=== PATIENT | male | born 1995 | race Caucasian/White ===

== ENCOUNTER 2023-02-11 06:38 | Emergency (ER) | payer BC, SELFPAY ==
[2023-02-11 06:43] VITALS: BP 125/81; PULSE 84; RESP 18; TEMP 37.1; O2SAT 98; BMI 21.7
[2023-02-11] MEDS: ondansetron 2 mg/ML SDV 2 mL 4 MG IVP (06:49)
[2023-02-11] MEDS: sodium chloride 0.9% 1,000 ML 999 ML IV ×2 (06:50→08:15)
--- NOTE | 2023-02-11 06:53 | W.ED.NAVMDI ---
HPI - Nausea/Vomiting/Diarrhea General: Chief complaint: Nausea/Vomiting/Diarrhea Stated complaint: vomiting/diarrhea Time Seen by Provider: 02/11/23 06:40 Source: patient Mode of arrival: ambulatory History of Present Illness: 28-year-old male presents emergency room with complaint of nausea vomiting that began overnight. He states his has similar symptoms. He denies dysuria urgency frequency hematuria denies hematochezia melena hematemesis or coffee-ground emesis. He has not had a fever at all. Relates the abdominal pain is diffuse no focal area. He denies having had this before. He is not really tried anything for it other than drinking clear liquids overnight. No previous abdominal surgeries. His has similar symptoms in the same timeframe. MD elicited complaint: nausea and vomiting Description of vomiting: watery and bilious Associated nausea: Yes Location of pain: Diffuse Pain consistency: constant Severity: moderate Quality: cramping Exacerbating factors: eating Relieving factors: none Associated symtoms: Reports anorexia, nausea and other; Denies altered mental status, anxiety, bloating, change in vision, chest pain, cough, diaphoresis, decreased urine output, dizziness, dysuria, epistaxis, fatigue, fecal incontinence, fevers/chills, headache(s), malaise, myalgias, numbness, palpitations, rash, short of breath, syncope, tenesmus, tinnitus or weakness Review of Systems Const: Denies: fever(s), chills, fatigue, malaise or diaphoresis Eyes: Denies: change in vision ENMT: Denies: tinnitus or epistaxis Card: Denies: chest pain, palpitations or syncope Resp: Denies: dyspnea GI: Reports: abdominal pain, nausea and vomiting; Denies: hematemesis, coffee ground emesis, bloating, fecal incontinence, hematochezia or melena : Denies: flank pain, dysuria, urinary frequency or urinary urgency Musc: Denies: neck pain or back pain Skin/Breast: Denies: rash Neuro: Denies: headache(s) or dizziness Psych: Denies: anxiety PFS ED PFSH: Medical History (Updated 02/11/23 @ 08:24 by Juan Lara DO) Tinea corporis URI with cough and congestion Physical Exam Const: EXAM LIMITATIONS: no altered mental status GENERAL APPEARANCE: cooperative and comfortable ORIENTATION/CONSCIOUSNESS: Yes awake, Yes oriented to person, Yes oriented to place and Yes oriented to time HENMT: COMMON NORMALS: normocephalic, atraumatic and hearing grossly normal bilaterally HEAD & SCALP: normocephalic and atraumatic Resp: COMMON NORMALS: normal respiratory effort, No retractions, No use of accessory muscles and clear to auscultation bilaterally AUSCULTATION: clear to auscultation bilaterally Cardio: COMMON NORMALS: regular rate, regular rhythm and No murmurs present (Cardio) RATE: regular rate RHYTHM: regular rhythm GI: COMMON NORMALS: No hepatosplenomegaly present AUSCULTATION: Yes normoactive bowel sounds PALPATION: Yes Tenderness to palpation present (GI) (Diffuse nonspecific, no peritoneal signs), No Guarding due to palpation present (GI) and Yes No hepatosplenomegaly present Extremity: COMMON NORMALS: normal to inspection, capillary refill normal, no clubbing, cyanosis or edema, no calf tenderness and no pedal edema Neuro: SENSORIUM/ORIENTATION: Yes oriented to person, Yes oriented to place and Yes oriented to time Skin: COMMON NORMALS: no rashes or lesions noted GENERAL SKIN EXAM: no rashes or lesions noted Course Vital Signs: Vital signs: Vital Signs Temperature 98.7 F 02/11/23 06:43 Pulse Rate 84 02/11/23 06:43 Respiratory Rate 18 02/11/23 06:43 Blood Pressure 125/81 02/11/23 06:43 Pulse Oximetry 98 02/11/23 06:43 Oxygen Delivery Me thod Room Air 02/11/23 06:43 MDM - Nausea/Vomiting/Diarrhea Medical Decision Making Mild leukocytosis slight anion gap patient given IV fluids she is feeling better. His is here with similar symptoms. Repeat abdominal exam benign. Discharge home clear liquid diet antiemetics as needed advance diet as tolerated after 24 to 48 hours return if is worsening or change problems. Medical Records I reviewed the patient's medical records. Lab Data I reviewed the patient's lab results. 02/11/23 06:53 02/11/23 06:53 Laboratory Results WBC 16.08 10^3/uL (3.29-11.43) H 02/11/23 06:53 RBC 6.27 10^6/uL (3.85-5.65) H 02/11/23 06:53 Hgb 19.20 g/dL (11.27-16.99) H 02/11/23 06:53 Hct 53.3 % (37-53) H 02/11/23 06:53 MCV 85.0 fl (82-101) 02/11/23 06:53 MCH 30.6 pg (27-33) 02/11/23 06:53 MCHC 36.0 g/dL (30-55) 02/11/23 06:53 RDW 12.0 % (12.1-15.1) L 02/11/23 06:53 Plt Count 290 10^3/cmm (157-399) 02/11/23 06:53 MPV 10.1 fL (7.4-10.4) 02/11/23 06:53 Neut % (Auto) 90.4 % 02/11/23 06:53 Lymph % (Auto) 3.7 % 02/11/23 06:53 [place] % (Auto) 5.1 % 02/11/23 06:53 Eos % (Auto) 0.2 % 02/11/23 06:53 Baso % (Auto) 0.4 % 02/11/23 06:53 Neut # (Auto) 14.53 10^3/uL (1.8-7.7) H 02/11/23 06:53 Lymph # (Auto) 0.6 10^3/uL (0.8-4.8) L 02/11/23 06:53 [place] # (Auto) 0.8 10^3/uL (0.2-0.9) 02/11/23 06:53 Eos # (Auto) 0.0 10^3/uL (0.0-0.8) 02/11/23 06:53 Baso # (Auto) 0.1 10^3/uL (0.0-0.1) 02/11/23 06:53 Nucleated RBC % (auto) 0 % 02/11/23 06:53 Nucleated RBCs # 0.0 /100WBC 02/11/23 06:53 Sodium 140 mmol/L (136-145) 02/11/23 06:53 Potassium 4.0 mmol/L (3.5-5.1) 02/11/23 06:53 Chloride 97 mmol/L (98-107) L 02/11/23 06:53 Carbon Dioxide 26 mmol/L (22-29) 02/11/23 06:53 Anion Gap 21.0 (5-19) H 02/11/23 06:53 BUN 21 mg/dL (6-20) H 02/11/23 06:53 Creatinine 0.9 mg/dL (0.7-1.2) 02/11/23 06:53 GFR Calculation 99.8 mL/min (90-130) 02/11/23 06:53 Glucose 147 mg/dL (65-115) H 02/11/23 06:53 Calculated Osmolality 296 mOsm/kg (285-295) H 02/11/23 06:53 Calcium 10.7 mg/dL (8.5-10.5) H 02/11/23 06:53 Total Bilirubin 5.5 mg/dL (0.15-1.2) H 02/11/23 06:53 AST 26 U/L (0-40) 02/11/23 06:53 ALT 32 U/L (0-41) 02/11/23 06:53 Alkaline Phosphatase 127 U/L (40-130) 02/11/23 06:53 Total Protein 9.2 g/dL (6.6-8.7) H 02/11/23 06:53 Albumin 5.6 g/dL (3.5-5.2) H 02/11/23 06:53 Globulin 3.6 g/dL (1.3-4.6) 02/11/23 06:53 Urine Color Dark yellow (Yellow) 02/11/23 07:48 Urine Appearance Clear (CLEAR) 02/11/23 07:48 Urine pH 5 (5-7) 02/11/23 07:48 Ur Specific [place] 1.020 (1.005-1.030) 02/11/23 07:48 Urine Protein Trace (Negative) 02/11/23 07:48 Urine Glucose (UA) Norm (Normal) 02/11/23 07:48 Urine Ketones 1+ (Negative) H 02/11/23 07:48 Urine Blood Neg (Negative) 02/11/23 07:48 Urine Nitrate Negative (Negative) 02/11/23 07:48 Urine Bilirubin 1+ (Negative) H 02/11/23 07:48 Urine Urobilinogen Norm mg/dL (Negative) 02/11/23 07:48 Ur Leukocyte Esterase Negative (Negative) 02/11/23 07:48 Urine RBC 0-4 /hpf (0-2) H 02/11/23 07:48 Urine WBC 0-4 /hpf (0-5) H 02/11/23 07:48 Ur Squamous Epith Cells 0-4 /hpf (0-5) H 02/11/23 07:48 Amorphous Sediment Not Reportable 02/11/23 07:48 Urine Bacteria Trace /hpf (NONE) 02/11/23 07:48 Urine Mucus 3+ /hpf 02/11/23 07:48 No radiology studies performed this visit Discharge Plan Discharge Patient Disposition: Home Clinical Impression: Gastroenteritis Condition: Stable Prescriptions: New promethazine 25 mg tablet 25 mg PO Q6H PRN (Reason: nausea and vomiting) Qty: 20 0RF No Action butenafine [Lotrimin Ultra] 1 % cream 1 applic topical BID Qty: 30 0RF benzonatate 200 mg capsule 200 mg PO TID PRN (Reason: cough) Qty: 30 0RF Discharge Orders: Discharge ED (Routine); Ordered 02/11/23 Ordered By: Juan Lara Discharge Diet: Clear Liquid Discharge Activity: Increase activity as tolerated Patient Instructions: Gastroenteritis (ED), Opioid Safety, Pain Management Coding Level of Care Code ED Clinic Assistant for Dina Morrissey
[2023-02-11 06:59] LABS: Basophils # 0.1 10^3/uL (0.0-0.1); Basophils % 0.4 %; Eosinophils % 0.2 %; Hematocrit 53.3 % (37-53); Lymphocytes # 0.6 10^3/uL (0.8-4.8); Lymphocytes % 3.7 %; Mean Corpuscular Hemoglobin 30.6 pg (27-33); Mean Platelet Volume 10.1 fL (7.4-10.4); Monocytes # 0.8 10^3/uL (0.2-0.9); Monocytes % 5.1 %; Neutrophils # 14.53 10^3/uL (1.8-7.7); Neutrophils % 90.4 %; Nucleated Red Blood Cells % 0 %; Platelet Count 290 10^3/cmm (157-399); Red Blood Count 6.27 10^6/uL (3.85-5.65); White Blood Count 16.08 10^3/uL (3.29-11.43)
[2023-02-11 07:19] LABS: Alanine Aminotransferase 32 U/L (0-41); Albumin Level 5.6 g/dL (3.5-5.2); Alkaline Phosphatase 127 U/L (40-130); Aspartate Amino Transferase 26 U/L (0-40); Blood Urea Nitrogen 21 mg/dL (6-20); Calcium 10.7 mg/dL (8.5-10.5); Carbon Dioxide 26 mmol/L (22-29); Chloride 97 mmol/L (98-107); Globulin 3.6 g/dL (1.3-4.6); Glomerular Filtration Rate 99.8 mL/min (90-130); Glucose 147 mg/dL (65-115); Osmolality Calculated 296 mOsm/kg (285-295); Sodium 140 mmol/L (136-145); Total Bilirubin 5.5 mg/dL (0.15-1.2); Total Protein 9.2 g/dL (6.6-8.7)
[2023-02-11 08:11] LABS: Bilirubin Urine 1+ (Negative); Blood Urine Neg (Negative); Glucose Urine UA Norm (Normal); Ketones Urine 1+ (Negative); Leukocyte Esterase Urine Negative (Negative); Nitrate Urine Negative (Negative); Protein Urine Trace (Negative); Urine Appearance Clear (CLEAR); Urine Color Dark Yellow (Yellow); Urobilinogen Urine Norm (Negative); pH Urine 5 (5-7)
[2023-02-11 08:12] LABS: Add Urine Microscopic? YES
[2023-02-11 08:17] LABS: Bacteria Urine TRACE /hpf; RBC Urine 0-4 /hpf (0-2); Squamous Epithelial Cell Urine 0-4 /hpf (0-5); WBC Urine 0-4 /hpf (0-5)
[2023-02-11 08:18] LABS: Add Urine Culture? No; Mucus Urine 3+ /hpf
== END 2023-02-11 08:45 | disposition home or self-care (01) ==
PROVIDERS: Emergency Provider Family Medicine
DX: K52.9 Noninfective gastroenteritis and colitis, unspecified (principal)
CPT/HCPCS: 80053; 81001; 85025; 96361; 96374; 99284; J2405; J7030

== ENCOUNTER 2024-11-02 04:07 | Day surgery (SDC) | payer OTHER, SELFPAY ==
[2024-11-02] VITALS (18 sets, daily range): BP systolic 116–150; BP diastolic 69–91; PULSE 61–83; RESP 14–18; TEMP 36.6–36.9; O2SAT 96–100; BMI 20.6
--- NOTE | 2024-11-02 04:16 | XRR_ITS ---
PROCEDURE INFORMATION: Exam: XR Right Hand Exam date and time: 11/02/2024 4:20 AM Age: 29 years old Clinical indication: Injury or trauma; Other: Laceration; Hand; Right; Additional info: Index finger laceration and injry TECHNIQUE: Imaging protocol: Radiologic exam of the right hand. Views: 3 or more views. COMPARISON: No relevant prior studies available. FINDINGS: Bones/joints: There may be a subtle fracture involving the palmar and medial aspect of the proximal middle phalanx. No additional fractures are appreciated. There is no evidence of a dislocation. Bony mineralization is normal. Soft tissues: There is soft tissue injury with soft tissue swelling involving the 2nd digit. No acute soft tissue abnormalities are otherwise noted. No radiopaque soft tissue foreign body is identified. XR/XR hand RT min 3V* [id number] IMPRESSION: 1. Soft tissue swelling with soft tissue injury involving the 2nd digit. 2. Possible subtle fracture involving the proximal middle phalanx of the 2nd digit.
--- NOTE | 2024-11-02 04:24 | W.ED.EXTPRO ---
Documented by User: Dianelys Mcclellan MD 11/02/24 05:31 HPI - Extremity Problem General: Chief complaint: Extremity Injury, Upper Stated complaint: Rt Smashed Time Seen by Provider: 11/02/24 04:16 History of Present Illness: 29-year-old man presents emergency room with a right hand injury. He was at work and a motor dropped on his hand. He has a laceration on the palmar side of his right index finger. This is a large flap. He is neurovascularly intact. No other injuries. Related Data Home Medications ?Medication ?Instructions ?Recorded ?Confirmed No Known Home Medications 10/04/24 10/04/24 Allergies Allergy/AdvReac Type Severity Reaction Status Date / Time No Known Allergies Allergy Verified 10/04/24 13:16 Review of Systems Narrative: Constitutional symptoms: Negative except as documented in HPI. Skin symptoms: Negative except as documented in HPI. Eye symptoms: Negative except as documented in HPI. ENMT symptoms: Negative except as documented in HPI. Respiratory symptoms: Negative except as documented in HPI. Cardiovascular symptoms: Negative except as documented in HPI. Gastrointestinal symptoms: Negative except as documented in HPI. Genitourinary symptoms: Negative except as documented in HPI. Musculoskeletal symptoms: Negative except as documented in HPI. Neurologic symptoms: Negative except as documented in HPI. Psychiatric symptoms: Negative except as documented in HPI. Endocrine symptoms: Negative except as documented in HPI. [facility] ED PFSH: Surgical History (Updated 10/04/24 @ 13:16 by Shelley Bob MD) No history of previous surgery Family History (Updated 10/04/24 @ 13:17 by Shelley Bob MD) Mother Lung cancer Atrial fibrillation Sleep apnea Social History (Updated 10/04/24 @ 13:20 by Shelley Bob MD) Smoking and tobacco/nicotine status: current every day tobacco/nicotine user (vapes) e-cigarettes E-Cigarette Details: vaporizer device and with nicotine Alcohol intake: former Substance/Drug Use: current Substance/Drug use frequency: few times a week Household members: significant other Marital status: Single Number of children: 1 Current occupational status: employed Current occupation: [employer] Special db needs: No Agree to transfusion: Yes Physical Exam Narrative: EXAM NARRATIVE: General: Alert, no acute distress. Skin: warm and dry, large triangular-shaped flap on the mid right palmar index finger. Head: Normocephalic Neck: Trachea midline Eye: Extraocular movements are intact. Ears, nose, mouth and throat: Oral mucosa moist Respiratory: Respirations are non-labored Musculoskeletal: Normal ROM Gastrointestinal: Abdomen does not appear distended Neurological: Alert and oriented, No focal neurological deficit observed. Psychiatric: Cooperative, appropriate mood & affect. Course Vital Signs: Vital signs: Vital Signs Temperature 97.8 F 11/02/24 04:10 Pulse Rate 83 11/02/24 06:52 Respiratory Rate 18 11/02/24 06:08 Blood Pressure 135/90 11/02/24 06:52 Pulse Oximetry 100 11/02/24 06:52 Oxygen Delivery Me thod Room Air 11/02/24 04:10 MDM - Extremity (Nontraumatic) Medical Decision Making Consultation: I spoke with Dr. Morris who is on-call for orthopedics. Given large amount of exposure of tendon and exposure to dirt and grease he is going to come evaluate the patient and consider taking him to the OR for washout Tetanus, IV Ancef, IV morphine. X-ray of the right hand: In 1 view there might be a small cortical irregularity but I think this actually shadow from the laceration. Films were interpreted by myself the emergency room provider and pending final radiology review. Patient care transitioned Dr. Lara at shift change Discharge Plan Discharge Patient Disposition: Placed in Observation Clinical Impression: Laceration of finger Qualifiers: Encounter type: initial encounter Finger: index finger Damage to nail status: without damage Foreign body presence: without foreign body Laterality: right Qualified Code(s): S61.210A - Laceration without foreign body of right index finger without damage to nail, initial encounter Sign Out Sign Out Data: Patient Sign Out occurred on 11/02/24 at 05:53. Patient's care was discussed, and care was transferred from Dianelys Mcclellan MD to Juan Lara DO. Coding Level of Care Code ED Plate Put In Worker for Chg Fwd Documented by User: Juan Lara DO 11/02/24 07:04 HPI - Extremity Problem General: Chief complaint: Extremity Injury, Upper Stated complaint: Rt Smashed Time Seen by Provider: 11/02/24 04:16 Related Data Home Medications ?Medication ?Instructions ?Recorded ?Confirmed No Known Home Medications 10/04/24 10/04/24 Allergies Allergy/AdvReac Type Severity Reaction Status Date / Time No Known Allergies Allergy Verified 10/04/24 13:16 [facility] ED PFSH: Surgical History (Updated 10/04/24 @ 13:16 by Shelley Bob MD) No history of previous surgery Family History (Updated 10/04/24 @ 13:17 by Shelley Bob MD) Mother Lung cancer Atrial fibrillation Sleep apnea Social History (Updated 10/04/24 @ 13:20 by Shelley Bob MD) Smoking and tobacco/nicotine status: current every day tobacco/nicotine user (vapes) e-cigarettes E-Cigarette Details: vaporizer device and with nicotine Alcohol intake: former Substance/Drug Use: current Substance/Drug use frequency: few times a week Household members: significant other Marital status: Single Number of children: 1 Current occupational status: employed Current occupation: [employer] Special db needs: No Agree to transfusion: Yes Course Vital Signs: Vital signs: Vital Signs Temperature 97.8 F 11/02/24 04:10 Pulse Rate 83 11/02/24 06:52 Respiratory Rate 18 11/02/24 06:08 Blood Pressure 135/90 11/02/24 06:52 Pulse Oximetry 100 11/02/24 06:52 Oxygen Delivery Me thod Room Air 11/02/24 04:10 MDM - Extremity (Nontraumatic) Medical Decision Making Consultation: I spoke with Dr. Morris who is on-call for orthopedics. Given large amount of exposure of tendon and exposure to dirt and grease he is going to come evaluate the patient and consider taking him to the OR for washout Tetanus, IV Ancef, IV morphine. X-ray of the right hand: In 1 view there might be a small cortical irregularity but I think this actually shadow from the laceration. Films were interpreted by myself the emergency room provider and pending final radiology review. Patient care transitioned Dr. Lara at shift change Discussed with Dr. Sommer he has been down to the see the patient and wants to take him to the OR for washout under local anesthesia. Patient transferred to surgery will be discharged from their is received Ancef and an updated tetanus while in the emergency room Medical Records I reviewed the patient's medical records. All radiology interpretation(s) finalized by discharge Discharge Plan Discharge Patient Disposition: Placed in Observation Clinical Impression: Laceration of finger Qualifiers: Encounter type: initial encounter Finger: index finger Damage to nail status: without damage Foreign body presence: without foreign body Laterality: right Qualified Code(s): S61.210A - Laceration without foreign body of right index finger without damage to nail, initial encounter Sign Out Sign Out Data: Patient Sign Out occurred on 11/02/24 at 05:53. Patient's care was discussed, and care was transferred from Dianelys Mcclellan MD to Juan Lara DO. Coding Level of Care Code ED Plate Put In Worker for Dina Morrissey
[2024-11-02] MEDS: tetanus-dipt-pertussis 0.5 mL SDV IM (04:26)
[2024-11-02] MEDS: ceFAZolin 2,000 mg SDV 2000 MG IVP ×2 (04:27→07:30)
[2024-11-02] MEDS: ondansetron 2 mg/ML SDV 2 mL 4 MG IVP (04:51)
[2024-11-02] MEDS: morphine 4 mg/mL SDV 1 mL IVP ×2 (04:52→06:08)
--- NOTE | 2024-11-02 06:54 | PM.HP ---
Providers/Chief Complaint Admitting Physician: Daniel Morris DO orthopedic surgery Primary Care Provider: Shelley Bob MD Chief Complaint: WC Rt hand Smashed by engine at work with complex History of Present Illness Patient 29-year-old man presents emergency room with a right hand injury. He was at work at [employer], was in the middle of his shift the motor burned up he was working on this and when carrying it fell and was wearing gloves and the motor fell and crushed his hand he has a small laceration on the volar radial aspect of the right thumb as well as laceration over P1 of the index finger. He is neurovascularly intact. No other injuries. Seen by the emergency department due to complex laceration and exposed tendon orthopedics was consulted for evaluation treatment recommendations patient received antibiotics in the emergency department Review of Systems General: Reports: 10 or more systems reviewed and unremarkable except in HPI and below Medications/Allergies Home Medications ?Medication ?Instructions ?Recorded ?Confirmed ?Last Taken ?Type No Known Home Medications 10/04/24 11/02/24 Unknown History Allergies Allergy/AdvReac Type Severity Reaction Status Date / Time No Known Allergies Allergy Verified 10/04/24 13:16 PFSH Acute PFSH: Surgical History (Updated 10/04/24 @ 13:16 by Shelley Bob MD) No history of previous surgery Family History (Updated 10/04/24 @ 13:17 by Shelley Bob MD) Mother Lung cancer Atrial fibrillation Sleep apnea Social History (Updated 10/04/24 @ 13:20 by Shelley Bob MD) Smoking and tobacco/nicotine status: current every day tobacco/nicotine user (vapes) e-cigarettes E-Cigarette Details: vaporizer device and with nicotine Alcohol intake: former Substance/Drug Use: current Substance/Drug use frequency: few times a week Household members: significant other Marital status: Single Number of children: 1 Current occupational status: employed Current occupation: [employer] Special db needs: No Agree to transfusion: Yes Vitals/I&O/Wt Last Vital Signs Temp 97.8 F 11/02/24 04:10 Pulse 83 11/02/24 06:52 Resp 18 11/02/24 06:08 BP 135/90 11/02/24 06:52 Pulse Ox 100 11/02/24 06:52 O2 Del Method Room Air 11/02/24 04:10 11/01/24 11/01/24 11/02/24 14:59 22:59 06:59 Intake Total 0 / 0 Balance 0 / 0 Weight last 48 hrs Weight 165 lb Physical Exam Narrative: Right hand examination: Examination of right hand demonstrates patient's dressings on in place subsequently taken down patient has a palmar and radial laceration over the base of the right thumb this is roughly 2 cm in length. This does probe deep he does have sensation intact to the digital neurovascular bundles as well as brisk capillary refill less than 2 seconds he is able to flex and extend at the IP joint MP and CMC of the right thumb Examination of the right index finger patient has a complex U-shaped laceration directly over P1. With a volar finger flap that is distally based. At this point patient does have some gross dirt/contamination of the flap. His finger distally has brisk capillary refill less than 2 seconds. He does endorse sensations intact light touch on the radial and ulnar sides of the digit he states subtly decreased on the ulnar side. With the flap elevated is visible to see his FDS tendons and knees actively flex and extend I am able to isolate his FDS tendons and FDS tendons are intact as well as unable to isolate FDP and FDP is intact. Data Xray Ortho: My impression: X-rays multiple views of the right hand reviewed in person interpreted by myself demonstrating patient has soft tissue defect of the index finger no significant arthritic changes noted of the hand, possible small avulsion fracture of the middle phalanx base on the ulnar aspect. Radiologist's impression: No formal read from radiologist as of note A&P Assessment and plan (1) Laceration of finger: (2) Avulsion fracture of middle phalanx of finger: Plan N.p.o. since 3 AM X-rays reviewed?possible right middle phalanx base avulsion fracture (would recommend this being treated conservatively with leonidas taping an early range of motion. Received antibiotics emergency department Underwent bedside irrigation with normal saline by emergency department and placed in with a dry dressing Take to the OR today urgently this morning for formal right thumb laceration irrigation and debridement and primary closure, right index finger laceration wound exploration, irrigation debridement and primary closure Patient will discharge from outpatient surgery after Patient is a pleasant 29-year-old male sustained a crush injury engine fell onto his hand was wearing gloves he has a laceration over the palmar aspect of the thumb as well as a complex laceration over the volar aspect of the index finger over P1. His FDS and FDP tendons are intact he does endorse sensations intact to light touch distally consistent with neurovascular bundles are intact. At this point in time given this being a work injury with age and in his hands do have some gross appearing contamination would recommend taking this to the OR for formal washout we talked about this in detail as far as ins and outs procedure risk benefits complication alternatives of surgery. Risk of surgically but not limited to make a better make it worse, injury to nerves vessels or tendons, infection, decreased finger range of motion, scar tissue. Understanding risks with surgery patient was proceed with surgical invention he did last eat at 3 AM we talked about waiting 8 hours for anesthesia or we could do this under local only and through shared decision making elects to proceed with surgical intervention under local only. Will go ahead and coordinate getting patient down to the OR he will be able to discharge from the outpatient surgery after the procedure he is already received antibiotics will get him set up with postoperative discharge instructions. Once again he is neurovascular intact as well as his FDS and FDP tendons are intact as well as flexor tendons are intact to the thumb. As a result making goals here would be for more aggressive infection with a OR irrigation debridement and primary closure. Patient as well as a avionics safety inspector/coworker present with him today. Patient understands agrees with current plan. All questions answered at this time. PDMP PDMP Reviewed: Not Reviewed Attestations Medical Necessity Statement*: Complex right thumb and index finger lacerations with contamination requiring formal OR irrigation debridement and closure Coding Level of Care Code Acute Code for [facility] Fwd Diagnoses Laceration of finger S61.210A Damage to nail status: without damage Encounter type: initial encounter Finger: index finger Foreign body presence: without foreign body Laterality: right Avulsion fracture of middle phalanx of finger S62.629A Time Spent (min) 60
[2024-11-02 07:14] LABS: PCP Screen Urine Negative (Negative)
[2024-11-02] MEDS: acetaminophen 1,000 MG/100 ML PIGGYBACK 400 MG IV (07:24)
[2024-11-02] MEDS: ROPivacaine 0.5% SDV 30 mL 50 MG INJECTION (07:40)
[2024-11-02 07:41] LABS: Alcohol Level < 10 mg/dL (0-10)
--- NOTE | 2024-11-02 08:33 | P.BOP_ITS ---
Date of Procedure: 11/02/2024 Surgeon: Daniel Morris DO Vocational Rehabilitation Teacher(s): None Procedure(s) performed: Right thumb irrigation and debridement with primary closure (2 cm x 1 cm x 1 cm) Right index finger complex laceration wound exploration, irrigation and debridement with primary closure (7 cm x 3 cm x 1 cm) Findings of the procedure(s): Patient underwent procedure as per that issues or complications patient radial digital nerve on the right thumb was intact. This was then irrigated and closed in standard fashion the complex laceration of the index finger patient did have identification of both neurovascular bundles which were intact FDP and FDS tendons were intact under direct visualization patient had laceration/injury to the distal 20% of the A2 jarret where the remanence was completely macerated and attenuated. Patient then subsequently underwent irrigation and debridement and closure of complex laceration tolerated well without issue complications patient in a volar splint Estimated blood loss: 5 mL Specimen(s) removed: None Post-operative diagnosis: Right thumb laceration, right index finger laceration complex
--- NOTE | 2024-11-02 08:37 | P.OP_ITS ---
Operative Report Date of procedure: November 02, 2024 Pre-op diagnosis: Right thumb laceration, right index finger complex laceration with exposed tendon, contaminated Right index finger middle phalanx avulsion fracture Post-op diagnosis: Same Procedure done: Right thumb irrigation and debridement with primary closure (2 cm x 1 cm x 1 cm) Right index finger complex laceration wound exploration, irrigation and debridement with primary closure (7 cm x 3 cm x 1 cm) Right index finger middle phalanx fracture (closed treatment) Surgeon: Daniel Morris DO Supervisor Pipe Manufacture: None Anesthesia: Local Estimated blood loss: 5 mL 25 minutes (250 mmHg) IV fluids: 250 mL Complications: None Findings: See operative report narrative Condition: stable Disposition: same day Brief History: Patient is a 29-year-old male who sustained injury at work and had injury following a crush right hand causing laceration of the right thumb as well as complex laceration of the right index finger does appear to have a small avulsion fracture at the base of the middle phalanx of the index finger. At this point in time given the complex open nature of this as well as concern for contamination would recommend taken to the OR urgently for a right thumb and index finger irrigation and debridement. Once again neurovascular is intact distally as well as the FDS and FDP tendons are intact. At this point time we talked about his treatment options here moving forward and through shared decision making patient like to pursue surgical intervention for a right thumb laceration irrigation debridement with primary closure and right index finger laceration aspiration with irrigation debridement primary closure. Patient understands the ins outs procedure risk benefits complication alternatives of surgery through shared decision-making patient elects proceed with surgical invention. All questions answered at this time. Procedure: Patient was seen eval in the preoperative holding area. Consent was reviewed and signed with patient. At this point in time given discussion with patient plan was for local only anesthesia. Once ready for surgery patient was kept on hospital gurney and transported the OR table armboard was applied to the right upper extremity. At this point in time patient was then hooked up to monitors and monitored by the nursing staff. Nonsterile tourniquet applied to the right upper arm. At this point in time we then prepped and draped the right upper extremity in standard orthopedic fashion. Final timeout performed. Patient received appropriate preoperative antibiotics. At this point in time I then subsequently performed digital blocks of the right thumb at the laceration site as well as the right index finger. This was then subsequent allowed to set up once appropriately anesthetized we then utilized an Esmarch tourniquet to exsanguinate the right upper extremity tourniquet was insu fflated to 250 mmHg. Thorough irrigation was started off and performed to both laceration sites just to clear of any hematoma clot. Once this was done I then thoroughly inspected the right thumb first. This laceration was 2 cm x 1 cm x 1 cm this is debrided subcutaneous fat and skin tissue. I utilized blunt Littler dissection scissors to dissect and evaluate the inspection and the extent of this laceration this did come just adjacent to the radial digital bundle to the right thumb but this was intact through its entirety and was found to not being lacerated. At this point time thoroughly irrigation performed once satisfied with the debridement with sharp scalpel excision as well as dissection scissors of all nonviable tissue and any gross contamination this was then closed in standard interrupted nylon suture fashion. I then subsequently proceeded with the right index finger. At this point in time I thoroughly irrigated the right index finger to evaluate the complex laceration the distally based U-shaped flap over the volar aspect of P1 was then elevated and held by my licensed nursing assistant. I was able to fully inspect the flexor tendon and was able to have patient actively flex and extend the FDP and FDS tendons which were clearly visible and intact. This did appear to have some disruption in maceration of the distal 20% of the A2 jarret a patient was able to make a fist and extend there was no tendon bowstringing at this point time the remanent and completely macerated distal 20% A2 jarret was left alone. At this point in time I then dissected and identified both the radial and ulnar digital neurovascular bundles these were intact. At this point time patient was neurovascularly intact as well as flexor tendons were intact. At this point in time thorough irrigation performed and removal of all gross contamination of any dirt or debris this wound extended 7 cm x 3 cm x 1 cm. This was excised with sharp scalpel excision as well as later dissection scissors of skin subcutaneous fascia. Once this was debrided I then thoroughly irrigated the wound bed once again. This point in time this completed procedure tourniquet was deflated hemostasis satisfactory I then closed primarily the flap on the index finger with simple interrupted nylon suture. This point time bulky soft dressing was then applied with Xeroform at the incision 4 x 4's fluffs Mayte wrap Curlex soft roll and a volar splint was applied. Patient was then taken recovery in stable condition. Disposition: Patient taken recovery in stable condition receive appropriate discharge instructions with pain medication and postoperative antibiotics. Will follow-up in the orthopedic office in 2 weeks patient and family understand agree with current plan. All questions answered.
== END 2024-11-02 09:05 | disposition home or self-care (01) ==
LOC: ER 06:50 → OR 06:56
PROVIDERS: Emergency Provider Family Medicine; PCP Family Medicine; Visit Provider Student in an Organized Health Care Education/Training Program
PROC: (CPT 26080; principal; 2024-11-02 07:30)
DX: S61.011A Laceration without foreign body of right thumb without damage to nail, initial encounter (principal); S61.210A Laceration without foreign body of right index finger without damage to nail, initial encounter; S62.620A Displaced fracture of middle phalanx of right index finger, initial encounter for closed fracture; W23.1XXA Caught, crushed, jammed, or pinched between stationary objects, initial encounter; Y99.0 Civilian activity done for income or pay; F17.290 Nicotine dependence, other tobacco product, uncomplicated
CPT/HCPCS: 26080; 26720; 36415; 73130; 80306; 80307; 90471; 90715; A4216; J0131; J0690; J1885; J2270; J2405; J2795; J9999

== ENCOUNTER 2024-11-02 06:30 | Outpatient (RCR) | payer OTHER, SELFPAY | END 2024-12-02 23:59 | disposition home or self-care (01) | LOC: SOT 06:30 | PROVIDERS: PCP Family Medicine; Visit Provider Student in an Organized Health Care Education/Training Program | DX: S62.629A Displaced fracture of middle phalanx of unspecified finger, initial encounter for closed fracture (principal); X58.XXXA Exposure to other specified factors, initial encounter | CPT/HCPCS: 97022; 97110; 97140; 97165 ==

== ENCOUNTER → 2024-11-17 10:01 | Outpatient (BNVA) | payer OTHER, SELFPAY | PROVIDERS: PCP Family Medicine; Visit Provider Physician Assistant | DX: Z98.890 Other specified postprocedural states (principal); S62.620D Displaced fracture of middle phalanx of right index finger, subsequent encounter for fracture with routine healing; S61.210D Laceration without foreign body of right index finger without damage to nail, subsequent encounter; S61.011D Laceration without foreign body of right thumb without damage to nail, subsequent encounter; X58.XXXD Exposure to other specified factors, subsequent encounter | CPT/HCPCS: 73130 ==

== ENCOUNTER → 2024-12-01 13:40 | Outpatient (BNVA) | payer OTHER, SELFPAY | PROVIDERS: PCP Family Medicine; Visit Provider Physician Assistant | DX: Z98.890 Other specified postprocedural states (principal) | CPT/HCPCS: 73130 ==

== ENCOUNTER 2024-12-03 06:00 | Outpatient (RCR) | payer OTHER, SELFPAY | END 2025-01-02 23:59 | disposition home or self-care (01) | LOC: SOT 06:00 | PROVIDERS: PCP Family Medicine; Visit Provider Student in an Organized Health Care Education/Training Program | DX: S62.629A Displaced fracture of middle phalanx of unspecified finger, initial encounter for closed fracture (principal); S61.219A Laceration without foreign body of unspecified finger without damage to nail, initial encounter; X58.XXXA Exposure to other specified factors, initial encounter | CPT/HCPCS: 97022; 97110; 97140 ==

== ENCOUNTER → 2025-01-11 08:54 | Outpatient (BNVA) | payer OTHER, SELFPAY | PROVIDERS: PCP Family Medicine; Visit Provider Physician Assistant | DX: Z98.890 Other specified postprocedural states (principal) | CPT/HCPCS: 73130 ==